=== PATIENT | male | born 1985 | race Caucasian/White ===

== ENCOUNTER 2019-06-18 07:46 | Inpatient (IN) | payer OTHER ==
[~2019-06-18] VITALS: Ht 188 cm; Wt 128.2 kg
[2019-06-18 08:19] LABS: BASO # 0.1 (0.0-0.2); EOS # 0.2 (0.0-0.7); EOS % 1.7 % (0-4.0); GRAN % 56.6 % (42.2-75.2); HEMATOCRIT 45.9 % (42.0-52.0); HEMOGLOBIN 15.2 g/dl (13.5-18.0); LYMPH # 3.5 (1.2-3.4); LYMPH % 32.7 % (20.0-51.0); MEAN CELL VOLUME 87 fl (80.0-100.0); MEAN CORPUSCULAR HEMOGLOBIN 29 pg (27.0-31.0); MEAN CORPUSCULAR HGB CONC 33 g/dl (33.0-37.0); MONO # 0.8 (0.1-0.6); MONO % 7.2 % (1.7-9.3); PLATELET COUNT 292 K/mm3 (130-400); RED BLOOD COUNT 5.29 M/mm3 (4.20-5.60); REDCELL DISTRIBUTION WIDTH-CV 12.8 % (11.5-14.5)
[2019-06-18 08:22] LABS: PROTHROMBIN TIME 11.3 SECONDS (9.7-12.8)
[2019-06-18 08:24] LABS: ALBUMIN 4.1 gm/dL (3.5-5.0); BILIRUBIN,TOTAL 0.4 mg/dL (0.0-1.0); CALCIUM 8.8 mg/dL (8.4-10.2); CREATININE, serum 1.33 (0.66-1.25); MAGNESIUM 1.9 mg/dL (1.6-2.3); PARTIAL THROMBOPLASTIN TIME 31.9 SECONDS (26.0-37.0); POTASSIUM 3.9 mmol/L (3.4-5.0); TOTAL PROTEIN 7.3 gm/dL (6.4-8.2)
[2019-06-18] MEDS ORDERED: PERCOCET 325 MG1 TA2 PO (09:49)
[2019-06-18 11:40] LABS: COLLECTION METHOD CLEAN CATCH
[2019-06-18 11:47] LABS: MUCOUS Present /lpf; PH 5 (5-8); SQUAMOUS EPITHELIAL None Seen /hpf; URINE APPEARANCE Hazy; URINE BACTERIA Rare /hpf; URINE BILIRUBIN Negative (NEGATIVE); URINE BLOOD 1+ (NEGATIVE); URINE COLOR Yellow; URINE GLUCOSE Negative (NEGATIVE); URINE KETONE Trace (NEGATIVE); URINE LEUKOCYTE ESTERASE Negative (NEGATIVE); URINE NITRATE Negative (NEGATIVE); URINE PROTEIN(semi-quant) 2+ (NEGATIVE); URINE UROBILINOGEN Negative (NEGATIVE)
[2019-06-18 13:05] LABS: HEMATOCRIT 43.6 % (42.0-52.0); HEMOGLOBIN 14.5 g/dl (13.5-18.0); MEAN CELL VOLUME 88 fl (80.0-100.0); MEAN CORPUSCULAR HEMOGLOBIN 29 pg (27.0-31.0); MEAN CORPUSCULAR HGB CONC 33 g/dl (33.0-37.0); MEAN PLATELET VOLUME 9.7 fl (7.4-10.4); PLATELET COUNT 231 K/mm3 (130-400); RED BLOOD COUNT 4.95 M/mm3 (4.20-5.60)
[2019-06-18 13:26] LABS: BAND 3 % (0-10); LYMPHOCYTE 4 % (20.0-51.0); NEUTROPHILS 90 % (42.0-75.2); PLATELET ESTIMATE NORMAL (NORMAL)
[2019-06-18 14:13] VITALS: BP 127/60; PULSE 59; TEMP 98.5
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
[2019-06-18 17:28] VITALS: BP 119/69; PULSE 93; TEMP 98.2
--- NOTE | 2019-06-18 18:38 | NUR ---
rEPORT TO STEFANI GUERRA.
--- NOTE | 2019-06-18 18:48 | NUR ---
Report received from CHARLIE Rojas
--- NOTE | 2019-06-18 19:22 | NUR ---
Resting in bed. Assessment complete. Lungs clear. Heart sounds normal. Bowels active x4. Pulses strong throughout. No edema noted. Abrasion to left knee, left wrist, left knuckles present. IV infusing into right hand without complications. Denies pain at this time. Has lidocaine patch in place to left rib cage. Denies needs at this time. Call light in reach.
[2019-06-18 19:37] LABS: HEMATOCRIT 43.6 % (42.0-52.0); HEMOGLOBIN 14.3 g/dl (13.5-18.0)
[2019-06-18 20:00] VITALS: BP 139/85; PULSE 100; TEMP 98.7
--- NOTE | 2019-06-18 22:07 | NUR ---
Rating pain 7/10 with ambulation and 3/10 while resting. Provided with PRN percocet.
--- NOTE | 2019-06-18 22:28 | NUR ---
Patient in airborne precaution room. Not in any precautions at this time. States "I feel institutionalized." Patient uncomfortable in room. Offered new room to patient. Moved from 341 to 349. Patient states new room is "much better."
[2019-06-19] VITALS: BP 103/50; PULSE 79; TEMP 98.3
[2019-06-19 04:00] VITALS: BP 142/69; PULSE 64; TEMP 98.3
--- NOTE | 2019-06-19 04:58 | NUR ---
Reports pain while ambulating 06/01. 4/10 while resting. Provided with PRN percocet.
--- NOTE | 2019-06-19 06:08 | NUR ---
Patient required x2 doses of percocet for pain control. Lidocaine patch remains in place at this time. Resting in bed this AM. Denies needs. Call light in reach.
--- NOTE | 2019-06-19 06:32 | NUR ---
Report given to CHARLIE Rojas
[2019-06-19 07:07] LABS: BASO % 0.4 % (0.0-2.0); EOS # 0.1 (0.0-0.7); EOS % 0.7 % (0-4.0); GRAN # 6.6 (1.4-6.5); GRAN % 69.9 % (42.2-75.2); HEMATOCRIT 40.7 % (42.0-52.0); HEMOGLOBIN 13.2 g/dl (13.5-18.0); LYMPH # 1.7 (1.2-3.4); LYMPH % 18.1 % (20.0-51.0); MEAN CELL VOLUME 90 fl (80.0-100.0); MEAN CORPUSCULAR HEMOGLOBIN 29 pg (27.0-31.0); MEAN CORPUSCULAR HGB CONC 32 g/dl (33.0-37.0); MEAN PLATELET VOLUME 10.4 fl (7.4-10.4); MONO % 10.5 % (1.7-9.3); PLATELET COUNT 208 K/mm3 (130-400); RED BLOOD COUNT 4.55 M/mm3 (4.20-5.60); REDCELL DISTRIBUTION WIDTH-CV 13.2 % (11.5-14.5)
[2019-06-19 07:15] LABS: ALBUMIN 3.5 gm/dL (3.5-5.0); BILIRUBIN,TOTAL 0.4 mg/dL (0.0-1.0); CALCIUM 8.2 mg/dL (8.4-10.2); CREATININE, serum 1.2 (0.66-1.25); POTASSIUM 3.7 mmol/L (3.4-5.0); TOTAL PROTEIN 6.3 gm/dL (6.4-8.2)
[2019-06-19 07:53] VITALS: BP 117/72; PULSE 55; TEMP 97.7
--- NOTE | 2019-06-19 08:36 | NUR ---
PT INDEPENDENT IN ROOM AND HALLS. PAIN PATCH OVER LEFT FLANK, SCRAPES TO LEFT HAND WRIST, KNEE. PT DENIES NEEDS AT THIS TIME.
--- NOTE | 2019-06-19 10:47 | NUR ---
JES met with the patient to discuss discharge plan. The patient lives alone in [place]. He reports independence with ADLs and does not have any DME. The patient does not have a PCP and he receives his medications at the [facility]. He reports no difficulties obtaining his meds. The patient was interested with establishing a PCP. JES discussed primary care options in the [place] area. The patient chose the [facility]. JES contacted Monik at the [facility] and secured the patient an appointment with Dr. Dev Monroe on Monday, 06/26, at 1300. JES informed the patient and the community resource officer of the appointment. The patient does not have advanced directives and he was not interested in completing them at this time. The patient states that his next of kin is his mother, Vika Pinzon (ph#[phone]). The patient states that his mother lives in [place]. The patient plans to return home upon discharge. No additional needs at this time.
[2019-06-19] MEDS ORDERED: Lidocaine 4% Patch TP (11:48)
[2019-06-19] MEDS ORDERED: COLACE 100100 MG/CAP PO (11:48)
[2019-06-19] MEDS ORDERED: MOTRIN 600600 MG/TAB PO (11:50)
[2019-06-19] MEDS ORDERED: PERCOCET 325 MG1 TA2 PO (11:51)
[2019-06-19 11:55] VITALS: BP 133/83; PULSE 86; TEMP 98.5
--- NOTE | 2019-06-19 12:32 | NUR ---
DISCHARGE INSTRUCTIONS REVIEWED WITH PATIENT QUESTIONS SOLICITED AND ANSWERED. PT LEFT AMBULATORY WITH STAFF.
--- NOTE | 2019-06-19 12:57 | NUR ---
First visit from the sergeant of officers. No needs right now.
== END 2019-06-19 12:30 | disposition home or self-care (01) | DRG 205 ==
LOC: COL.ER 07:46 → SURG 13:00
PROVIDERS: Emergency Medicine; ADMIT Surgery
DX: S22.32XA Fracture of one rib, left side, initial encounter for closed fracture (principal); S36.031A Moderate laceration of spleen, initial encounter; M25.512 Pain in left shoulder; S60.512A Abrasion of left hand, initial encounter; S80.212A Abrasion, left knee, initial encounter; R31.9 Hematuria, unspecified; V89.2XXA Person injured in unspecified motor-vehicle accident, traffic, initial encounter; Y93.89 Activity, other specified; Y92.410 Unspecified street and highway as the place of occurrence of the external cause
CPT/HCPCS: A9284; J1170; J2405; J3010; J7030; Q9967

== ENCOUNTER → 2019-06-28 | Outpatient (CLI) | payer OTHER ==
[~2019-06-28] MED LIST: COLACE 100100 MG/CAP PO; Lidocaine 4% Patch TP; MOTRIN 600600 MG/TAB PO; PERCOCET 325 MG1 TA2 PO
== END ==
LOC: COL.RAD 14:02
DX: B02.9 Zoster without complications (principal)

== ENCOUNTER 2021-03-04 15:26 | Emergency (ER) | payer OTHER ==
[~2021-03-04] VITALS: Ht 188 cm; Wt 84.1 kg
[2021-03-04 15:34] VITALS: TEMP 99
[2021-03-04 15:50] LABS: BASO # 0.1 (0.0-0.2); BASO % 1.4 % (0.0-2.0); EOS # 0.2 (0.0-0.7); GRAN # 4.7 (1.4-6.5); GRAN % 45.4 % (42.2-75.2); HEMATOCRIT 49.3 % (42.0-52.0); HEMOGLOBIN 16.7 g/dl (13.5-18.0); LYMPH # 4.4 (1.2-3.4); LYMPH % 42.6 % (20.0-51.0); MEAN CELL VOLUME 86 fl (80.0-100.0); MEAN CORPUSCULAR HEMOGLOBIN 29 pg (27.0-31.0); MEAN CORPUSCULAR HGB CONC 34 g/dl (33.0-37.0); MEAN PLATELET VOLUME 10.1 fl (7.4-10.4); MONO # 0.8 (0.1-0.6); MONO % 7.6 % (1.7-9.3); PLATELET COUNT 330 K/mm3 (130-400); RED BLOOD COUNT 5.75 M/mm3 (4.20-5.60); REDCELL DISTRIBUTION WIDTH-CV 12.8 % (11.5-14.5)
[2021-03-04 16:57] LABS: BILIRUBIN,TOTAL 0.3 mg/dL (0.0-1.0); CALCIUM 8.8 mg/dL (8.4-10.2); CREATININE, serum 1.76 (0.66-1.25); POTASSIUM 4.3 mmol/L (3.4-5.0); TOTAL PROTEIN 7.6 gm/dL (6.4-8.2)
[2021-03-04 17:17] VITALS: BP 132/78; PULSE 76
== END 2021-03-04 18:00 | disposition home or self-care (01) ==
LOC: COL.ER 15:26
PROVIDERS: Emergency Medicine
DX: S70.311A Abrasion, right thigh, initial encounter (principal); M79.641 Pain in right hand; M25.511 Pain in right shoulder; Z23 Encounter for immunization; V23.4XXA Motorcycle driver injured in collision with car, pick-up truck or van in traffic accident, initial encounter
CPT/HCPCS: J1885; J3010; J7030; Q9967